=== PATIENT | female | born 1995 | race Caucasian/White ===

== ENCOUNTER → 2018-02-06 | Emergency (ER) | payer MEDICAID | END | disposition left against medical advice (07) | LOC: ER 01:51 | DX: M79.604 Pain in right leg (principal); Z53.21 Procedure and treatment not carried out due to patient leaving prior to being seen by health care provider ==

== ENCOUNTER → 2018-07-01 | Emergency (ER) | payer SELFPAY | END | disposition left against medical advice (07) | LOC: ER 21:40 | DX: H92.01 Otalgia, right ear (principal); Z53.21 Procedure and treatment not carried out due to patient leaving prior to being seen by health care provider ==